=== PATIENT | female | born 1985 | race African-American/Black ===

== ENCOUNTER 2018-02-17 22:41 | Inpatient (IN) | payer SELFPAY ==
[~2018-02-17] VITALS: Ht 170.2 cm; Wt 68.0 kg
[2018-02-18] MEDS ORDERED: ACETAMINOPHEN WITH CODEINE 300/30MG TABLET PO STA (02:11)
[2018-02-18] MEDS ORDERED: ONDANSETRON 4MG ODT PO STA (02:11)
[2018-02-18 02:36] LABS: CLARITY URINE CLEAR (CLEAR); COLOR URINE DARK YELLOW (YELLOW); KETONES URINE TRACE (NEGATIVE); LEUKOCYTE ESTERASE URINE NEGATIVE (NEGATIVE); NITRITE URINE NEGATIVE (NEGATIVE); OCCULT BLOOD URINE NEGATIVE (NEGATIVE); PH URINE 5.5 (4.5-8.0); PROTEIN URINE NEGATIVE (NEGATIVE); SPECIFIC GRAVITY URINE 1.023 (1.005-1.030)
[2018-02-18 02:37] LABS: BASOPHILS % 0.4 % (0.0-2.0); HEMATOCRIT. 44.7 % (36.0-48.0); HEMOGLOBIN. 14.9 g/dL (12.0-16.0); LYMPHOCYTES % 7.6 % (20.0-50.0); MEAN CORPUSCULAR HEMOGLOBIN 29.2 pg (28.0-32.0); MEAN CORPUSCULAR VOLUME 87.9 fL (81.0-99.0); MEAN PLATELET VOLUME 9.8 fl (7.4-10.4); MONOCYTES % 3.4 % (2.0-8.0); NEUTROPHILS % 88.6 % (40.0-76.0); PLATELET 239 x1000/uL (130-400); RED BLOOD CELL COUNT 5.08 mill/uL (4.2-5.4); RED CELL DISTRIBUTION WIDTH 12.6 % (11.6-14.6)
[2018-02-18 02:42] LABS: CHLORIDE 102 mEq/L (98-107)
[2018-02-18 02:43] LABS: PROTHROMBIN TIME 10.5 sec (9.4-11.6)
[2018-02-18] MEDS ORDERED: ONDANSETRON HCL 4MG/2ML VIAL IV STA (04:28)
[2018-02-18] MEDS ORDERED: MORPHINE SULFATE 4 MG/ML CPJ (NOT FOR IM USE) IV STA (04:28)
[2018-02-18] MEDS ORDERED: ONDANSETRON HCL 4MG/2ML VIAL IV PRN (04:45)
[2018-02-18] MEDS ORDERED: MORPHINE SULFATE 4 MG/ML CPJ (NOT FOR IM USE) IV PRN (04:45)
[2018-02-18] MEDS ORDERED: DIPHENHYDRAMINE 50MG/ML VIAL IV PRN (04:45)
[2018-02-18] MEDS ORDERED: ACETAMINOPHEN 650MG SUPP PR PRN (04:45)
[2018-02-18] MEDS ORDERED: PIPERACILLIN/TAZ 3.375G PREMIX 50 ML IV ONE (04:45)
[2018-02-18] MEDS ORDERED: LEVOFLOXACIN 500MG PREMIX 100 ML IV SCH (05:00)
[2018-02-18] MEDS: SODIUM CHLORIDE 0.9% 1,000 ML IV SCH ×3 (05:20→22:46)
[2018-02-18 08:40] VITALS: BP 100/61
[2018-02-18 09:30] VITALS: BP 100/61
[2018-02-18] MEDS: PANTOPRAZOLE SODIUM 40 MG/VIAL IV SCH (10:01)
[2018-02-18 12:00] VITALS: BP 93/56
[2018-02-18] MEDS: PIPERACILLIN/TAZ 3.375G PREMIX 50 ML IV SCH ×2 (14:42→22:31)
[2018-02-18 16:00] VITALS: BP 105/72
[2018-02-18] MEDS ORDERED: IBUP-22 PO (16:26)
[2018-02-18 20:00] VITALS: BP 98/58
[2018-02-19] VITALS: BP 108/56
[2018-02-19 04:00] VITALS: BP 96/59
[2018-02-19] MEDS: PIPERACILLIN/TAZ 3.375G PREMIX 50 ML IV SCH (06:44)
[2018-02-19 06:58] LABS: BASOPHILS % 0.8 % (0.0-2.0); EOSINOPHILS % 1.1 % (0.0-5.0); HEMATOCRIT. 36.9 % (36.0-48.0); HEMOGLOBIN. 12.4 g/dL (12.0-16.0); LYMPHOCYTES % 48.3 % (20.0-50.0); MEAN CORPUSCULAR HEMOGLOBIN 29.6 pg (28.0-32.0); MEAN CORPUSCULAR VOLUME 88.2 fL (81.0-99.0); MEAN PLATELET VOLUME 10.9 fl (7.4-10.4); MONOCYTES % 7.5 % (2.0-8.0); NEUTROPHILS % 42.3 % (40.0-76.0); PLATELET 180 x1000/uL (130-400); RED BLOOD CELL COUNT 4.18 mill/uL (4.2-5.4); RED CELL DISTRIBUTION WIDTH 12.9 % (11.6-14.6)
[2018-02-19 07:38] LABS: CHLORIDE 110 mEq/L (98-107)
[2018-02-19 08:00] VITALS: BP 98/54
[2018-02-19] MEDS: PANTOPRAZOLE SODIUM 40 MG/VIAL IV SCH (08:14)
[2018-02-19] MEDS: SODIUM CHLORIDE 0.9% 1,000 ML IV SCH ×2 (10:44→21:03)
[2018-02-19] MEDS: HYDROCODONE/ACETAMINOPHEN 5/325MG TABLET PO PRN (11:41)
[2018-02-19 12:00] VITALS: BP 105/65
[2018-02-19 16:00] VITALS: BP 95/57
[2018-02-19 20:00] VITALS: BP 93/60
[2018-02-20] VITALS: BP 97/61
[2018-02-20 04:00] VITALS: BP 95/54
[2018-02-20 05:46] LABS: BASOPHILS % 0.8 % (0.0-2.0); EOSINOPHILS % 1.5 % (0.0-5.0); HEMATOCRIT. 38.2 % (36.0-48.0); HEMOGLOBIN. 12.8 g/dL (12.0-16.0); MEAN CORPUSCULAR HEMOGLOBIN 29.6 pg (28.0-32.0); MEAN PLATELET VOLUME 10.6 fl (7.4-10.4); MONOCYTES % 7.4 % (2.0-8.0); NEUTROPHILS % 41.3 % (40.0-76.0); PLATELET 197 x1000/uL (130-400); RED BLOOD CELL COUNT 4.34 mill/uL (4.2-5.4); RED CELL DISTRIBUTION WIDTH 12.7 % (11.6-14.6)
[2018-02-20] MEDS: SODIUM CHLORIDE 0.9% 1,000 ML IV SCH (06:00)
[2018-02-20 06:07] LABS: CHLORIDE 109 mEq/L (98-107)
[2018-02-20 07:50] VITALS: BP 100/61
[2018-02-20] MEDS: PANTOPRAZOLE SODIUM 40 MG/VIAL IV SCH (08:33)
[2018-02-20 12:00] VITALS: BP 106/60
[2018-02-20] MEDS: HYDROCODONE/ACETAMINOPHEN 5/325MG TABLET PO PRN (12:29)
[2018-02-20 16:00] VITALS: BP 95/57
[2018-02-20 16:50] VITALS: BP 95/57
== END 2018-02-20 18:15 | disposition home or self-care (01) ==
LOC: ER 22:41 → 6EST 02-18 04:41 → EDBEDREQ 02-18 04:45 → EDBEDREQSVC 02-18 04:45 → ENRESERV 02-18 07:49
PROVIDERS: ADMIT Internal Medicine; ATTEND Internal Medicine
DX: K80.64 Calculus of gallbladder and bile duct with chronic cholecystitis without obstruction (principal); Z79.899 Other long term (current) drug therapy
CPT/HCPCS: 36415; 71045; 74181; 76705; 80048; 80053; 80076; 81003; 81025; 82150; 82248; 83690; 85025; 85610; 87040; 96365; 96367; 96375; 99285; C9113; J1956; J2270; J2405; J2543; J7030; Q0162